=== PATIENT | male | born 1955 | race Caucasian/White ===

== ENCOUNTER 2019-05-19 10:50 | Emergency (ER) | payer MEDICARE, OTHER ==
[2019-05-19] MEDS ORDERED: ASPIRIN 81 MG CHEW TAB PO ONE (10:57)
[2019-05-19 11:29] LABS: BASOPHILS % 0.5 % (0.0-1.5)
--- NOTE | 2019-05-19 11:29 | ED Physician Documentation ---
General Adult - HISTORIAN Historian: patient - HPI Chief Complaint: General Adult Additional Information: 64 year old female presents with right shoulder pain r/t the right side of his neck. He was seen by Dr. Freire yesterday and had some manipulation done; felt fine after treatment. Today he had some numbness to the right hand and pain to the right shoulder and neck that worsened at chiropractor today; Dr Freire was concerned that he had a carotid blockage. Patient is actually starting to feel better on exam; intermittent sharp pain. Patient states that he is not having chest pain. Denies shortness of breath. He was diagnosed with A-fib 3 years ago and takes Xarelto. He had a cath at that time that was negative. digitizer is in [facility] and he has appt. in 2 weeks. Onset: hours Timing: better, pain intermittent Severity: moderate Modifying Factors: manipulation vs cardiac - ROS CONST: no problems EYES/ENT: none CVS/RESP: none GI/: none MS/SKIN/LYMPH: other NEURO/PSYCH: denies: headache - PAST HX Past History: A-Fib, hypertension Other History: diabetes Type 2 Surgeries/Procedures: other (tooth extraction) Immunizations: UTD Allergies/Adverse Reactions: Allergies Allergy/AdvReac Type Severity Reaction Status Date / Time bee venom protein (honey bee) Allergy Verified 05/19/19 10:57 Home Medications: Ambulatory Orders Medication Instructions Recorded Cyclobenzaprine HCl [Flexeril] 10 mg PO Q8H PRN #20 tablet 05/19/19 Methylprednisolone [Medrol] 4 mg PO DAILY #21 tab.ds.pk 05/19/19 - SOCIAL HX Smoking History: less than 1 pack/day Alcohol Use: occasionally (3 beers a day) Drug Use: none - FAMILY HX Family History: No - REVIEWED ASSESSMENTS Nursing Assessment Reviewed: Yes Vitals Reviewed: Yes Progress - Progress Progress: 13:00 Difficulty getting complete ultrasound due to pain from stretching neck to the left and would have to reposition shoulder. 13:14 Patient is back in room; denies any pain- only with right shoulder movement. 13:32 After receiving valium, patient has FROM with pain / ED Results Lab/Radiology - Radiology Radiology Impressions: Chest Two Views History: ORDER STATES sudden neck/chest pain/diaphoresis/sent from chiro; PT STATES NECK AND CHEST PAIN SINCE 7 AM; (Hx) / ---- Note time : 05/19/2019 11:44:43 AM User : Tanna Harvey ORDER STATES sudden neck/chest pain/diaphoresis/sent from chiro; PT STATES NECK AND CHEST PAIN SINCE 7 AM; PRIOR CXR 11/13/18 (DICOM Hx) (DICOM Hx) Findings: No prior. Heart size is normal and the lungs are clear and no pneumothorax or pleural effusion is seen. Impression: Negative Electronically signed on May 19, 2019 12:28:48 PM INTERACTIVE MEDIA DESIGNER by: Bubba Soriano Exam: Bilateral carotid Doppler study. History: 7 neck and chest pain. Diaphoresis. Doppler interrogation and color Doppler imaging of the carotid systems bilaterally are submitted. On the right side mild intimal thickening is identified. The internal carotid artery peak systolic velocity measurements is is 30 cm per 2nd. The internal carotid artery common carotid artery ratio is 0.6. Doppler waveforms are normal configuration. Some turbulence in flow at the bulb is noted. On the left side some intimal thickening and plaque is identified. The internal carotid artery peak systolic velocity measurements is 45 centimeters/second. The internal carotid artery common carotid artery ratio is 0.6. Doppler waveforms are normal configuration. Color Doppler imaging demonstrates no turbinates of flow. Impression: Intimal thickening and plaque is seen in both carotid systems. No hemodynamically significant stenosis is identified. Electronically signed on May 19, 2019 1:38:20 PM INTERACTIVE MEDIA DESIGNER by: Stephon Johnston - Orders Orders: ED Orders Category Date Time Status Continuous EKG monitoring Q30M Care 05/19/19 10:57 Active Continuous Pulse Oximetry Q30M Care 05/19/19 10:[address] IV Lock 1T Care 05/19/19 10:57 Active CAROTID ULTRASOUND [US DUPLEX CAROTID BILATERAL] [US] Exams 05/19/19 Ordered Stat CHEST 2VIEW [RAD] Stat Exams 05/19/19 Ordered CBC/PLATELET/DIFF Stat Lab 05/19/19 10:57 Ordered CKMB Stat Lab 05/19/19 Ordered CMP Stat Lab 05/19/19 Ordered CREATINE KINASE Stat Lab 05/19/19 Ordered NT BNP Stat Lab 05/19/19 Ordered TROPONIN I Stat Lab 05/19/19 Ordered Aspirin [Chelsy] Med 05/19/19 10:57 Discontinued 324 mg PO NOW ONE Oxygen Daily Oxygen 05/19/19 11:00 Ordered EKG WITH COMPARISON Stat Ther 05/19/19 10:57 Ordered General Adult Physical Exam - PHYSICAL EXAM GENERAL APPEARANCE: mild distress EENT: eye inspection normal, ENT inspection normal, pharynx normal, no signs of dehydration, FLAKITA, TM's nml NECK: normal inspection. No: stiff neck, carotid bruit RESPIRATORY: breath sounds normal CVS: heart sounds normal ABDOMEN: soft, normal bowel sounds SKIN: warm/dry, normal color EXTREMITIES: normal range of motion NEURO: oriented X3, CN's nml as tested, motor nml, sensation nml, mood/affect nml, cognition normal Discharge Clincal Impression: Muscle spasm of right shoulder Prescriptions: Cyclobenzaprine HCl [Flexeril] 10 mg PO Q8H PRN #20 tablet PRN Reason: muscle spasm Methylprednisolone [Medrol] 4 mg PO DAILY #21 tab.ds.pk Referrals: Primary Doctor,No [Primary Care Provider] - 2 Days Additional Instructions: Take muscle relaxer as directed (Flexeril 10 mg by mouth every 8 hours as needed for spasms- may cause drowsiness) Steroid (Take Medrol Dose Pack as directed for inflammation) May alternate Tylenol and Ibuprofen as needed for discomfort Keep appointment with Water Pump Operator in 2 weeks Condition: Good Disposition: 01 HOME, SELF-CARE Decision to Admit: NO Decision Time: 13:50
[2019-05-19 11:43] LABS: eGFR (Non-African) > 60
[2019-05-19] MEDS ORDERED: MORPHINE SULFATE 4 MG/ML VIAL IV ONE ×2 (11:51→12:20)
--- NOTE | 2019-05-19 12:33 | Diagnostic Imaging Report ---
PATIENT MR#: [id number] PATIENT PATIENT NAME: ASHLEY WALTON DATE OF : 1955 REFERRING PHYSICIAN: Lilly Brennan EXAM DATE: 05/19/2019 ACCESSION NUMBER: [id number] EXAM DESCRIPTION: CHEST 2VIEW Chest Two Views History: ORDER STATES sudden neck/chest pain/diaphoresis/sent from chiro; PT STATES NECK AND CHEST PA IN SINCE 7 AM; (Hx) / Note time : 05/19/2019 11:44:43 AM User : Tanna juarez ORDER STATES sudden neck/chest pain/diaphoresis/sent from chiro; PT STATES NECK AND CHEST PAIN SINCE 7 AM; PRIOR C XR 11/13/18 (DICOM Hx) (DICOM Hx) Findings:No prior. Heart size is normal and the lungs are clear and no pneumothorax or pleural effusi on is seen. Impression: Negative Read by: Dr. Bubba Soriano Transcribed by: Transcribed Date: Electronically signed by: Dr. Bubba Soriano Date signed: 05/19/2019 12:32:58 PM
--- NOTE | 2019-05-19 13:39 | Diagnostic Imaging Report ---
PATIENT MR#: [id number] PATIENT PATIENT NAME: ASHLEY WALTON DATE OF : 1955 REFERRING PHYSICIAN: Lilly Brennan EXAM DATE: 05/19/2019 ACCESSION NUMBER: [id number] EXAM DESCRIPTION: US DUPLEX CAROTID BILATERAL Exam: Bilateral carotid Doppler study. History: 7 neck and chest pain. Diaphoresis. Doppler interrogation and color Doppler imaging of the carotid systems bilaterally are submitted. On the right side mild intimal thickening is identified. The internal carotid artery peak systolic v elocity measurements is is 30 cm per 2nd. The internal carotid artery common carotid artery ratio is 0.6. D oppler waveforms are normal configuration. Some turbulence in flow at the bulb is noted. On the left side some intimal thickening and plaque is identified. The internal carotid artery peak systolic velocity measurements is 45 centimeters/second. The internal carotid artery common carotid artery ratio is 0. 6. Doppler waveforms are normal configuration. Color Doppler imaging demonstrates no turbinates of flow. Impression: Intimal thickening and plaque is seen in both carotid systems. No hemodynamically significant stenosis is identified. Read by: Dr. Stephon Bhagat Transcribed by: Carlton Palm Transcribed Date: 05/19/2019 1:41:57 PM Electronically signed by: Dr. Stephon Bhagat Date signed: 05/19/2019 1:41:57 PM
[2019-05-19 14:08] VITALS: BP 110/73
== END 2019-05-19 14:00 | disposition home or self-care (01) ==
LOC: ED 10:50
DX: M62.838 Other muscle spasm (principal)
CPT/HCPCS: 80053; 82550; 82553; 83880; 84484; 85025; 93005; 96374; 96375; 96376; 99284; J2270; J3360; S1016